=== PATIENT | female | born 1970 | race Caucasian/White ===

== ENCOUNTER 2022-11-04 12:15 | Emergency (ER) | payer BC ==
[~2022-11-04] VITALS: Ht 165.1 cm; Wt 86.6 kg
[2022-11-04 12:26] VITALS: BP 151/88
== END 2022-11-04 12:41 | disposition left against medical advice (07) ==
LOC: ER 12:16
DX: R22.0 Localized swelling, mass and lump, head (principal); Z53.21 Procedure and treatment not carried out due to patient leaving prior to being seen by health care provider
CPT/HCPCS: 99281

== ENCOUNTER 2024-11-18 18:26 | Emergency (ER) | payer BC ==
[~2024-11-18] VITALS: Ht 165.1 cm; Wt 78.2 kg
[2024-11-18 18:34] VITALS: BP 171/84; PULSE 76; RESP 15; O2SAT 98
--- NOTE | 2024-11-18 20:17 | Physician Documentation ---
History of Present Illness ~ Chief Complaint: Knee Pain Stated Complaint: LEG PAIN/ SOB Time Seen by MD: 19:41 Primary Medical Doctor: balbir DELGADO Patient is seen today with complaints of swelling and edema of her left lower extremity as well as knee pain that is been progressing over the last month or so. Patient also complains of intermittent mild shortness of breath during that time. Patient denies any current shortness of breath or chest pain for abdominal pain or nausea, vomiting, diarrhea in the ED tonight. Patient is concerned for blood clot for left lower extremity. She denies any previous history of DVTs. She denies any injury to the left knee and denies any recent surgery or recent travel. She states he just had x-ray of her left knee done that showed no acute findings within the last week. Tetanus witin 5 years: No Medication Reconciliation Allergies: Coded Allergies: No Known Allergies (Unverified , 11/18/24) Past Medical History Past Medical History: No Pertinent History Lives In: Home Review of Systems Constitutional: Denies: chills, fever, weakness Eyes: Denies: pain, blurred vision ENT: Denies: ear pain, nose pain, throat pain, mouth pain Respiratory: Denies: cough, shortness of breath Cardiovascular: Denies: chest pain, palpitations Gastrointestinal: Denies: abdominal pain, nausea, vomiting Genitourinary: Denies: burning, dysuria Female Genitalia: Denies: vaginal discharge, pelvic pain Neurological: Denies: headache, dizziness Musculoskeletal: Denies: pain, swelling Integumentary: Denies: rash, lesions Allergic/Immunologic: Denies: hives, itching Hematologic/Lymphatic: Denies: no symptoms reported Psychiatric: Denies: depression, anxiety Physical Exam Vital Signs: Temperature: 98.6, Source: Temporal, Heart Rate: 76, Respiratory Rate: 15, BP: 171/84, Pulse Oximetry: 98, Weight: 78.250 Physical Exam General: Awake and Alert, no acute distress. HEENT: Conjunctiva pink, Sclera clear, Mucus Membranes moist. Neck: Supple without masses and tenderness. Resp: Unlabored. Lungs clear to auscultation bilaterally. Heart: Regular Rate and rhythm, normal S1 and S2 without murmur, rub or gallop. Extremities: Patient on exam does have edema or 1+ pitting edema of the left lower extremity with positive Homans sign and tenderness to palpation of the posterior left calf. I do not appreciate any erythema or sign of cellulitis or infection. Skin: Warm and Dry. Progress Results/Orders Results/Orders Orders - TELLY FULTONTYRONE Vilchis PAC Vl Venous (11/18/24 20:05) Completed Orders - FULTONTELLYWALKER R PAC Vl Venous (11/18/24 20:05) Aspirin 325mg Tablet (Aspirin 325mg Tabl (11/18/24 20:05) Cbc/Diff (11/18/24 20:05) BMP (11/18/24 20:05) D-Dimer (11/18/24 20:05) Vital Signs 11/18/24 11/18/24 18:34 21:34 Temp 98.6 98.6 Pulse 76 Resp 15 B/P (MAP) 171/84 Pulse Ox 98 Laboratory Tests Test 11/18/24 20:22 White Blood Count 11.1 H Red Blood Count 4.50 Hemoglobin 13.4 Hematocrit 39.5 Mean Corpuscular Volume 87.7 Mean Corpuscular Hemoglobin 29.7 Mean Corpuscular Hemoglobin Concent 33.9 Red Cell Distribution Width 12.9 Platelet Count 299 Mean Platelet Volume 8.6 Neutrophils (%) (Auto) 62.1 Lymphocytes (%) (Auto) 23.5 Monocytes (%) (Auto) 10.0 Eosinophils (%) (Auto) 3.8 Basophils (%) (Auto) 0.6 Neutrophils # (Auto) 6.9 Lymphocytes # (Auto) 2.6 Monocytes # (Auto) 1.1 H Eosinophils # (Auto) 0.4 Basophils # (Auto) 0.1 CBC Comment D-Dimer 2.07 H D-Dimer Comment Sodium Level 142 Potassium Level 4.3 Chloride Level 106 Carbon Dioxide Level 27.7 Anion Gap 8 Blood Urea Nitrogen 19 H Creatinine 0.76 Estimated GFR/1.73 m2 80 BUN/Creatinine Ratio 25.0 H Glucose Level 93 Calcium Level 8.8 Albumin 3.8 Chemistry Comments EKG/XRAY/CT/US/VASC/MRI Ultrasound : Impression VASCULAR Patient: DEBORA MOORE Medical Record: [id number] ELIZABETH EDGEWOOD : 1970, Age: 54 Sex: F Location: ER Patient Status: [facility] ER Service Date/Time: 11/18/242004 Ordering Physician: WALKER FULTON PAC Exam Name: VENOUS Technologist: Mitch Calle Left lower extremity venous duplex Clinical History: Left lower extremity edema and pain Comparison: None Technique: Duplex Doppler evaluation of the deep venous system of the left lower extremity from the common femoral vein to the popliteal vein including color Doppler and spectral/pulsed waveform analysis was performed. Findings: The common femoral vein demonstrates appropriate compressibility and waveform variability. There is compressibility/patency of the great saphenous vein at the proximal thigh. The femoral vein demonstrates appropriate compressibility and waveform variability. The deep femoral vein demonstrates appropriate compressibility and waveform variability. The popliteal vein demonstrates appropriate compressibility and waveform variability. There is normal compressibility at the tibioperoneal trunk. Left popliteal fossa cyst measuring 3.4 x 1.1 cm. Impression: 1. No left femoropopliteal venous thrombosis. 2. Contralateral common femoral vein is patent. 3. Left popliteal cyst. Dictated by:FAHAD PORTER MD Dictation date and time:11/18/242138 Electronically Signed by: FAHAD PORTER MD Date and Time: 11/18/242138 Transcribed: [facility] Transcribed: NO PRIMARY CARE PROVIDER~ cc: WALKER FULTON PAC; FAHAD PORTER MD ~ Medical Decision Making Findings Patient is seen today with complaints of swelling and edema of her left lower extremity as well as knee pain that is been progressing over the last month or so. Patient also complains of intermittent mild shortness of breath during that time. Patient denies any current shortness of breath or chest pain for abdominal pain or nausea, vomiting, diarrhea in the ED tonight. Patient is concerned for blood clot for left lower extremity. She denies any previous history of DVTs. She denies any injury to the left knee and denies any recent surgery or recent travel. She states he just had x-ray of her left knee done that showed no acute findings within the last week. Vascular ultrasound of the left lower extremity was performed today and returned unremarkable without any sign of DVT. Patient was found to have possible Balderas's cyst. Patient will follow up with senior contract specialist for further eval and consult as soon as possible. Continue Tylenol ibuprofen as needed for symptomatic relief. Return to ED with any worsening, concerning or changing symptoms. Departure Disposition: 01 HOME / SELF CARE / HOMELESS Impression: Primary Impression: Knee pain Qualified Codes: M25.562 - Pain in left knee Additional Impression: Edema of left lower extremity Condition: Stable Discharge Instructions: Acute Knee Pain, Adult Additional Instructions: Vascular ultrasound of the left lower extremity was performed today and returned unremarkable without any sign of DVT. Patient was found to have possible Balderas's cyst. Patient will follow up with senior contract specialist for further eval and consult as soon as possible. Continue Tylenol ibuprofen as needed for symptomatic relief. Return to ED with any worsening, concerning or changing symptoms. Referrals: NO PRIMARY CARE PROVIDER (PCP) Signature Scribe Signature: No scribe Attestation: No scribe WALKER FULTON PAC Nov 18, 2024 20:17
[2024-11-18 20:37] LABS: MEAN PLATELET VOLUME 8.6 FL (7.4-10.4); RED CELL DISTRIBUTION WIDTH 12.9 % (11.5-14.5)
[2024-11-18 20:46] LABS: CREATININE 0.76 MG/DL (0.40-0.90); TOTAL CARBON DIOXIDE 27.7 MMOL/L (24-32); eCRCL 78 ML/MIN; eGFR 80 ML/MIN
[2024-11-18 21:34] VITALS: TEMP 98.6
--- NOTE | 2024-11-18 21:42 | VASCULAR REPORT ---
Left lower extremity venous duplex Clinical History: Left lower extremity edema and pain Comparison: None Technique: Duplex Doppler evaluation of the deep venous system of the left lower extremity from the common femor al vein to the popliteal vein including color Doppler and spectral/pulsed waveform analysis was perfo rmed. Findings: The common femoral vein demonstrates appropriate compressibility and waveform variability. There is compressibility/patency of the great saphenous vein at the proximal thigh. The femoral vein demonstrates appropriate compressibility and waveform variability. The deep femoral vein demonstrates appropriate compressibility and waveform variability. The popliteal vein demonstrates appropriate compressibility and waveform variability. There is normal compressibility at the tibioperoneal trunk. Left popliteal fossa cyst measuring 3.4 x 1.1 cm. Impression: 1. No left femoropopliteal venous thrombosis. 2. Contralateral common femoral vein is patent. 3. Left popliteal cyst.
== END 2024-11-18 21:35 | disposition home or self-care (01) ==
LOC: ER 18:27
DX: M25.562 Pain in left knee (principal); R60.0 Localized edema; R06.02 Shortness of breath
CPT/HCPCS: 36415; 80048; 85025; 85379; 93971; 99284